=== PATIENT | female | born 1965 | race Asian ===

== ENCOUNTER 2023-03-13 07:42 | Outpatient (CLI) | payer BC | END 2023-03-13 07:43 | disposition home or self-care (01) | LOC: CSHULT 07:42 | PROVIDERS: ATTEND Family Medicine | DX: E04.1 Nontoxic single thyroid nodule (principal) | CPT/HCPCS: 76536 ==

== ENCOUNTER 2024-01-02 08:27 | Outpatient (CLI) | payer BC | END 2024-01-02 08:28 | disposition home or self-care (01) | LOC: CSHULT 08:27 | PROVIDERS: ATTEND Physician Assistant Medical | DX: K21.00 Gastro-esophageal reflux disease with esophagitis, without bleeding (principal); R10.11 Right upper quadrant pain | CPT/HCPCS: 76705 ==